=== PATIENT | female | born 1955 | race Caucasian/White ===

== ENCOUNTER → 2022-07-05 | Outpatient (CLI) | payer MEDICARE ==
--- NOTE | 2022-07-06 04:54 | MR ---
EXAMINATION TYPE: MR shoulder RT wo con DATE OF EXAM: 07/05/2022 COMPARISON: None HISTORY: Pain in right shoulder Multiplanar multiecho imaging of the right shoulder without contrast. There is shoulder joint effusion. The glenoid bro appear intact. Biceps tendon is intact. Subscapul ryan tendon is intact. There is large full-thickness tear of the supraspinatus tendon with retraction. There is subdeltoid e ffusion. The infraspinatus tendon is intact. No evidence of a fracture. There is mild spurring at the AC joint and mild subacromial impingement. IMPRESSION: Large full-thickness tear of the supraspinatus tendon with retraction. Shoulder joint effusion and nash bdeltoid effusion.
== END | disposition home or self-care (01) ==
LOC: RADMRIMAIN 15:34
PROVIDERS: ATTEND Orthopaedic Surgery
DX: M75.121 Complete rotator cuff tear or rupture of right shoulder, not specified as traumatic (principal); M75.21 Bicipital tendinitis, right shoulder; M25.411 Effusion, right shoulder

== ENCOUNTER → 2024-01-23 | Outpatient (CLI) | payer MEDICARE ==
[2024-01-23 13:10] VITALS: BP 151/88; PULSE 101; RESP 16; TEMP 98.4
--- NOTE | 2024-01-23 14:37 | P.HPOB ---
History of Present Illness H&P Date: 01/23/24 Chief Complaint: Patient is here for her routine gynecologic exam. This is a 68-year-old -0-1-0 with an LMP of 2013. Patient is here to establish with this office. It Has been about 1 year since her last pelvic exam. She has been on HRT since her menopausal change 10 years ago. She tried stopping cold turkey, but had severe hot flashes and difficulty sleeping so she went back on HRT. 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 She is without gynecologic complaints and denies any postmenopausal bleeding. Review of Systems The patient's weight has been stable over the last year. She denies respiratory, cardiac, or G.I. problems. Past Medical History Additional Past Medical History / Comment(s): HYPOGLYCEMIA. Right shoulder problems. PAST CLIENT PROJECT COORDINATOR HISTORY: She has no history of STDs. History of Any Multi-Drug Resistant Organisms: None Reported Past Surgical History: Tonsillectomy Additional Past Surgical History / Comment(s): CARPAL TUNNEL AND TRIGGER THUMB RIGHT HAND 2016 Past Anesthesia/Blood Transfusion Reactions: No Reported Reaction Past Psychological History: No Psychological Hx Reported Smoking Status: Never smoker Past Alcohol Use History: Occasional (5 drinks per week.) Past Drug Use History: None Reported Additional History: She has been since 1977 and is not sexually active. 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 - Past Family History Mother Additional Family Medical History / Comment(s): spinal problems. . Father Family Medical History: Hypertension Additional Family Medical History / Comment(s): . Paternal grandmother had lung cancer. Medications and Allergies Home Medications Medication Instructions Recorded Confirmed Type Ascorbic Acid [Vitamin C] 1,000 mg PO DAILY 01/23/24 01/23/24 History Calcium Carbonate [Calcium] 1 tab PO DAILY 01/23/24 01/23/24 History Clobetasol Propionate [Temovate 0.05 mg TOPICAL DIRECTED 01/23/24 01/23/24 History 0.05% Cream] Glucosamine Sulfate 1 cap PO DAILY 01/23/24 01/23/24 History Meloxicam 7.5 mg PO DAILY 01/23/24 01/23/24 History Mv-Mn/Om3/Dha/Epa/Fish/Lut/Pramod 1 cap PO DAILY 01/23/24 01/23/24 History [Ocuvite Adult 50 Plus Softgel] [place]-3/Dha/Epa/Fish Oil [Fish Oil 1 cap PO DAILY 01/23/24 01/23/24 History 1,000 mg Softgel] Progesterone, Micronized 100 mg PO DAILY 01/23/24 01/23/24 History [Progesterone] Turmeric Root Extract [Turmeric] 1 cap PO DAILY 01/23/24 01/23/24 History estradioL [estradioL (Once Weekly) 0.05 mg TOPICAL WEEKLY 01/23/24 01/23/24 History 0.05 mg Patch] Allergies Allergy/AdvReac Type Severity Reaction Status Date / Time No Known Allergies Allergy Unverified 01/23/24 13:04 Exam Vital Signs Temp Pulse Resp BP Pulse Ox 01/23/24 13:04 98.4 F 101 H 16 151/88 97 Intake and Output 01/22/24 01/23/24 01/23/24 22:59 06:59 14:59 Other: Weight 72.121 kg Height 5 feet 2 inches, weight 159 pounds, BMI 29.1. This is a well-developed well-nourished white female who is alert and oriented times 3 in no acute distress. HEENT: Within normal limits. NECK: Supple without mass or thyromegaly. CHEST AND LUNGS: Clear to auscultation. HEART: Regular rate and rhythm. BREASTS: Are without mass or discharge. AXILLARY EXAM: Negative for adenopathy. BACK: Negative for CVA tenderness. ABDOMEN: Soft, nontender, without palpable masses. PELVIC EXAM: Normal external genitalia with mild to moderate atrophy. Cervix and vagina appear normal with mild to moderate atrophy. There is no unusual discharge. There is no evidence of prolapse. The uterus is midposition, nongravid size and nontender. There are no palpable adnexal masses or tenderness. RECTAL EXAM: Rectovaginal exam is negative for mass or tenderness and is negative for occult blood. EXTREMITIES: Nontender. IMPRESSION: 1. 68-year-old menopausal female with normal gynecologic exam. 2. The patient is on HRT use for vasomotor symptoms x 10 years. 3. Osteopenia. PLAN: 1. Pap smear cotest was performed. If this is negative we will repeat this in approximately 5 years and if they are both negative, we will discontinue it after the next Pap smear. 2. Self breast awareness was discussed with the patient. We have also discussed symptoms associated with inflammatory breast cancer. 3. Screening mammogram was done on 08/29/2023 and was benign. This was done at [facility]. Will repeat this after 1 year and the order slip was given to the patient for this. 4. We had a long discussion regarding HRT. We have discussed the WHI study findings including increased risk for heart attack, stroke, breast cancer, and blood clots. I recommended that she wean off of the HRT. Since she had significant symptoms when she stopped cold turkey, I have recommended that she wean gradually. She will have a trial of alternating a half a patch with 1 patch changed weekly. If this is successful, she will go into around to a half a patch weekly after 1 to 2 months. She will continue to try to wean until off of HRT. She is weaned off of the estradiol patch, she can discontinue the progesterone. She will start at estradiol 0.1% patch changed weekly with progesterone 100 mg daily p.o., then go to the weaning as above. 5. Osteoporosis prevention was discussed. I have stressed the importance of adequate calcium, vitamin D and regular exercise. Recommended amounts of calcium and vitamin D were also discussed. Will plan on repeating the bone density test next year. 6. She was advised to return in one year for her annual well woman exam.
== END ==
LOC: WWCWWP 12:55
PROVIDERS: ATTEND Obstetrics & Gynecology
DX: Z01.419 Encounter for gynecological examination (general) (routine) without abnormal findings (principal); M85.80 Other specified disorders of bone density and structure, unspecified site; Z78.0 Asymptomatic menopausal state

== ENCOUNTER → 2024-04-02 | Outpatient (CLI) | payer MEDICARE ==
[2024-04-02 13:17] VITALS: BP 163/81; PULSE 73; RESP 16; TEMP 98.1
--- NOTE | 2024-04-02 14:16 | P.PN ---
Progress Note - Text Progress Note Date: 04/02/24 Chief Complaint: Vulvar itching. HPI: This is a 68-year-old -0-1-0 with an LMP of 2013. Patient was seen on 01/23/2024. She had been on HRT for 10 years. She was asked to gradually wean off of the HRT. She did successfully wean off and last used it on 03/11/2024. Since then she has had occasional hot flashes which are tolerable. She discontinued the clobetasol cream which was prescribed for an uncertain reason. She has started noticing vulvar itching again. This is mostly noticed in the perineal area. She denies vaginal discharge or vaginal odor. She denies any postmenopausal bleeding. ROS: She denies respiratory, cardiac, or GI problems. PE: Blood pressure: 163/81, Height: 5 feet 2 inches, Weight: 156 pounds, Temperature: 98.1, Pulse: 73. Pulse oximeter 98%. This is a well developed, well nourished, white female who is alert and orientedx3, in no acute distress. External genitalia reveals mild to moderate atrophy. There is mild sharply demarcated erythema around the vulva and perianal areas. The perineum has pallor consistent with lichen sclerosis. There is minimal pallor in the area of the labia minora close to the clitoris. Vagina: There is no unusual discharge or odor noted. There are no vaginal lesions. There is no evidence of prolapse. Impression: 1. 68-year-old menopausal female who is weaned off of HRT. 2. Intermittent vulvar pruritus greatest in the perineal area. Findings are consistent with lichen sclerosus of the vulva. Plan: 1. The patient will be given a prescription for Temovate 0.05% ointment which she will use twice daily for 2 weeks, then once daily for 1 week. She will then use it only as needed. Once she is weaned off of the Temovate ointment, she can use a small amount of petroleum jelly, A&E ointment, or Aquaphor as a protective layer. She will avoid over washing with soap and avoid rubbing and scratching. Electronic prescription will be sent to [facility] pharmacy in [place]. 2. Continue off of HRT. 3. She will return in approximately 3 months for recheck. If her symptoms are not improving or the appearance is worsening, consider biopsy of the area to confirm the diagnosis. Time spent with the patient: 20 minutes
== END ==
LOC: WWCWWP 12:57
PROVIDERS: ATTEND Obstetrics & Gynecology
DX: L29.2 Pruritus vulvae (principal); N90.4 Leukoplakia of vulva; Z78.0 Asymptomatic menopausal state

== ENCOUNTER → 2024-09-03 | Outpatient (CLI) | payer MEDICARE ==
--- NOTE | 2024-09-04 10:03 | MM ---
Reason for Exam: Screening (asymptomatic). Last screening mammogram was performed 12 month(s) ago. Patient History: Menarche at age 13. Patient has no children. Postmenopausal. Currently using Estrogen, starting at age 58. Currently using Progesterone, starting at age 58. Paternal aunt had breast cancer, age 50. Risk Values: Krista 5 year model risk: 1.9%. NCI Lifetime model risk: 6.4%. Prior Study Comparison: 03/29/2022 Left Diagnostic Mammogram, [facility] [place] . [facility] . Tissue Density: The breasts are heterogeneously dense, which may obscure small masses. Findings: Analyzed By CAD. There is no suspicious group of microcalcifications or new suspicious mass in either breast. Overall Assessment: Negative, BI-RAD 1 Management: Screening Mammogram of both breasts in 1 year. . Patient should continue monthly self-breast exams. A clinical breast exam by your physician is recommended on an annual basis. This exam should not preclude additional follow-up of suspicious palpable abnormalities. Note on Krista scores and lifetime risk: 1. A Krista score greater than 3% is considered moderate risk. If this is the case, consider specialist referral to assess eligibility for a risk reducing agent. 2. If overall lifetime risk for the development of breast cancer is 20% or higher, the patient may qualify for future screening with alternating mammogram and breast MRI. [facility], , 09/04/2024 10:00 AM. Electronically signed and approved by: Guanako Antonio M.D. Radiologis
== END | disposition home or self-care (01) ==
LOC: RADMAMWWP 09-02 12:28
PROVIDERS: ATTEND Obstetrics & Gynecology
DX: Z12.31 Encounter for screening mammogram for malignant neoplasm of breast (principal); R92.333 Mammographic heterogeneous density, bilateral breasts; Z78.0 Asymptomatic menopausal state; Z80.3 Family history of malignant neoplasm of breast
CPT/HCPCS: 77063; 77067

== ENCOUNTER → 2025-01-28 | Outpatient (CLI) | payer MEDICARE ==
[2025-01-28 10:04] VITALS: BP 160/88; PULSE 107; RESP 16; TEMP 98.3
--- NOTE | 2025-01-28 10:30 | P.HPOB ---
History of Present Illness H&P Date: 01/28/25 Chief Complaint: The patient is here for her routine gynecologic exam. This is a 69-year-old -0-1-0 with an LMP of 2013. The patient tried to wean down from her HRT. I had prescribed a 0.025 mg estrogen patch to replace her 0.05 mg patch. She states her symptoms were very bad and this is problematic for her. She states she has fairly moderate to severe hot flashes and sleep problems related to this. Hot flashes typically occur about every 45 minutes and this interferes with her daily activity including with her work. She is otherwise without gynecologic complaints. She infrequently needs to use the Temovate ointment for vulvar irritation. Review of Systems The patient has gained 7 pounds over the last year. She denies respiratory, cardiac, or G.I. problems. Past Medical History Additional Past Medical History / Comment(s): HYPOGLYCEMIA. Right shoulder problems. 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 History of Any Multi-Drug Resistant Organisms: None Reported Past Surgical History: Tonsillectomy Additional Past Surgical History / Comment(s): CARPAL TUNNEL AND TRIGGER THUMB RIGHT HAND 2016 Past Anesthesia/Blood Transfusion Reactions: No Reported Reaction Past Psychological History: No Psychological Hx Reported Smoking Status: Never smoker Past Alcohol Use History: Occasional (4 drinks per week.) Past Drug Use History: None Reported Additional History: She has been since 1977 and is not sexually active. 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 - Past Family History Mother Additional Family Medical History / Comment(s): spinal problems. . Father Family Medical History: Hypertension Additional Family Medical History / Comment(s): . Paternal grandmother had lung cancer. Medications and Allergies Home Medications Medication Instructions Recorded Confirmed Type Ascorbic Acid [Vitamin C] 1,000 mg PO DAILY 01/23/24 01/28/25 History Glucosamine Sulfate 1 cap PO DAILY 01/23/24 01/28/25 History Meloxicam 7.5 mg PO DAILY 01/23/24 01/28/25 History Mv-Mn/Om3/Dha/Epa/Fish/Lut/Pramod 1 cap PO DAILY 01/23/24 01/28/25 History [Ocuvite Adult 50 Plus Softgel] [place]-3/Dha/Epa/Fish Oil [Fish Oil 1 cap PO DAILY 01/23/24 01/28/25 History 1,000 mg Softgel] Turmeric Root Extract [Turmeric] 1 cap PO DAILY 01/23/24 01/28/25 History Clobetasol Propionate [Temovate] 1 applic TP BID PRN #30 gm 04/02/24 01/28/25 Rx Progesterone, Micronized 100 mg PO DAILY #90 capsule 04/30/24 01/28/25 Rx [Progesterone] estradioL [estradioL (Once Weekly) 1 patch TRANSDERM WEEKLY #12 patch 04/30/24 01/28/25 Rx 0.025 mg Patch] Cholecalciferol (Vitamin D3) 50 mcg PO DAILY 01/28/25 01/28/25 History [Vitamin D3 (50 Mcg = 2000 Iu)] Allergies Allergy/AdvReac Type Severity Reaction Status Date / Time No Known Allergies Allergy Unverified 04/02/24 13:15 Exam Vital Signs Temp Pulse Resp BP Pulse Ox 01/28/25 09:56 98.3 F 107 H 16 160/88 97 Intake and Output 01/27/25 01/28/25 01/28/25 22:59 06:59 14:59 Other: Weight 75.296 kg Height 5 feet 3 inches, weight 166 pounds, BMI 29.4. This is a well-developed well-nourished white female who is alert and oriented times 3 in no acute distress. HEENT: Within normal limits. NECK: Supple without mass or thyromegaly. CHEST AND LUNGS: Clear to auscultation. HEART: Regular rate and rhythm. BREASTS: Are without mass or discharge. AXILLARY EXAM: Negative for adenopathy. BACK: Negative for CVA tenderness. ABDOMEN: Soft, nontender, without palpable masses. PELVIC EXAM: Normal external genitalia with mild atrophy. Cervix and vagina appear normal with mild atrophy. There is no unusual discharge. There is no evidence of prolapse. The uterus is midposition, nongravid size and nontender. There are no palpable adnexal masses or tenderness. RECTAL EXAM: Rectovaginal exam is negative for mass or tenderness and is negative for occult blood. EXTREMITIES: Nontender. IMPRESSION: 1. 69-year-old menopausal female with moderate to severe vasomotor symptoms after decreasing her HRT dose. 2. History of osteopenia. 3. Elevated blood pressure. PLAN: 1. Pap smear was deferred since she had a negative Pap smear cotest on 01/23/2024. 2. Self breast awareness was discussed with the patient. We have also discussed symptoms associated with inflammatory breast cancer. 3. Screening mammogram will be due in August. The order slip was given to the patient for this. 4. Osteoporosis prevention was discussed. We will plan on repeating the bone density test today. 5. We have had a long discussion regarding HRT. We have reviewed the risks which include increased risk for blood clots, heart attack, stroke, and breast cancer. After long discussion we have decided to increase her HRT dose to estradiol 0.0375 mg changed weekly and micronized progesterone 100 mg daily. Electronic prescription will be sent to [facility] in [place]. The prescription for Temovate ointment as needed will also be sent to [facility]. 6. She was advised to return in one year for her annual well woman exam and as needed.
--- NOTE | 2025-01-28 10:59 | BD ---
EXAMINATION TYPE: Axial Bone Density DATE OF EXAM: 01/28/2025 CLINICAL HISTORY: 69 years old Female. ICD-10 CODE: Z78.0 POST MENOPAUSAL , Additional History: Height: 62 in Weight: 160 lbs EXAM MEASUREMENTS: Bone mineral densitometry was performed using the [employer] System. Bone mineral density as measured about the Lumbar spine is: ----- L1-L4(G/cm2): 1.065 T Score Values are as follows: ----- L1: -0.4 ----- L2: -0.3 ----- L3: -1.0 ----- L4: -2.0 ----- L1-L4: -1.0 Z Score Values are as follows: ----- L1: 1.0 ----- L2: 1.1 ----- L3: 0.3 ----- L4: -0.6 ----- L1-L4: 0.4 Bone mineral density baseline Bone mineral density about the R hip (g/cm2): 0.797 Bone mineral density about the L hip (g/cm2): 0.798 T Score values are as follows: -----R Neck: -2.1 -----L Neck: -2.0 -----R Total: -1.7 -----L Total: -1.7 Z Score values are as follows: -----R Neck: -0.7 -----L Neck: -0.6 -----R Total: -0.5 -----L Total: -0.5 Bone mineral density baseline FRAX%s: The graph provided illustrates a 11.8% chance for a major osteoporotic fx and a 2.1% chance f or the hips probability for fx in 10 years time. IMPRESSION: Osteopenia (T Score between -2.5 and -1). There is slightly increased risk of fracture and the patient may be considered for treatment. Re-Screen 2-5 years. NOTE: T-SCORE=SD OF THE YOUNG ADULT MEAN. [facility], , 01/28/2025 10:56 AM
--- NOTE | 2025-01-29 10:11 | P.PN ---
Progress Note - Text Progress Note Date: 01/29/25 OUTPATIENT FOLLOW-UP NOTE TEST(S)/RESULTS: Bone density test on 01/28/2025 shows osteopenia. METHOD OF NOTIFICATION: The patient was notified by phone on 01/29/2025. PATIENT COMMENTS: She states she plans on checking her blood pressures at home with her own cuff. It was elevated here yesterday. DIAGNOSIS: Osteopenia. DISCUSSION: I have stressed the importance of adequate calcium, vitamin D and regular exercise. We will plan on repeating the bone density test in 2 years. I was not able to compare her recent bone density results with her past 1 because it was done at [facility]. PLAN: As above. She was advised to return in one year for her annual well woman exam.
== END ==
LOC: WWCWWP 09:12
PROVIDERS: ATTEND Obstetrics & Gynecology
DX: Z13.820 Encounter for screening for osteoporosis (principal); N95.1 Menopausal and female climacteric states; I10 Essential (primary) hypertension; Z87.39 Personal history of other diseases of the musculoskeletal system and connective tissue
CPT/HCPCS: 77080